=== PATIENT | female | born 1990 ===

== ENCOUNTER 2024-08-04 08:14 | Outpatient (REF) | payer OTHER, SELFPAY ==
--- OUTSIDE RECORDS SUMMARY | 2024-08-04 08:36 | XMS_ITS | Continuity of Care Document ---
Author Organization [facility] Address [address] [place] [address] Phone Care Team Providers Care Perch Mender Name Role Phone Santosh Martinez MD Unavailable Unavailable Advance Directives Directive Yes / No Effective Date File Name No Information Encounters Encounter Description Practice Location Reason(s) For Visit Diagnoses Date Provider Providers Copied on Encounter [facility], [facility] [place], [id number] tel: [phone] [facility] No Information Michelle Frost. [address] [facility], [place], [address]. tel:[phone] Family History Family Member Type Diagnosis Age At Onset No Information Payers Payer name Insurance type Covered alliance party ID Authoriza tion(s) No Information Social History Type Description Quantity Date Captured Comments Sex Female Smoking Status No Information Chief Complaint And Reason For Visit No Information Reason For Referral Reason For Referral No Information History Of Present Illness Encounter Date Complaint History Of Prese nt Illness No Information Functional Status Date Functional Assessmen t No Information Instructions Date Instruction Additional Infor mation No Information Assessments Type Assessment Date No Information Patient Care Teams Name Effective Dates (start - stop) Status Members No Information
--- OUTSIDE RECORDS SUMMARY | 2024-08-04 08:36 | XMS_ITS ---
Author Organization [facility] Address [address] [place] [address] Care Team Providers Care Shop Blacksmith Name Role Phone Humberto Benavides Unavailable [phone] ALLERGIES No Known Allergies RESULTS Component Value Reference Range Notes Urinalysis Reviewed date:03/05/2023 07:54:38 AM Interpretation:Negative Performing Lab: Notes/Report: Negative Color yellow Clarity clear Leuk neg Nitrite neg Urobili 0.2 Protein neg pH 6.0 Blood neg Sp Gr 1.025 Ketone neg Bili neg Glucose neg WBCs RBCs Casts Other REASON FOR VISIT Belly Button Infection Concern discharge for past four weeks, STD Check, Urine Sample Request no symptoms MEDICATIONS Medication SIG (Take, Route, Frequency, Duration) Notes Start Date End Date Status Cyclobenzaprine HCl 10 MG 1 tab(s) orall y 3 times a day for 5 days 07/13/2020 Not-Taking Bactrim DS 800-160 MG 1 tab(s) orally 2 times a day for 7 days 08/27/2019 Not-Taking Kyleena 19.5 MG 1 ea by intrauterine administration once Not-Taking Amoxicillin-Pot Clavulanate 875-125 MG 1 tab(s) orally every 12 hours for 10 day(s) 07/02/2020 Not-Takin g Zoloft 100 MG 2 tabs orally once a day 11/14/2016 Not-Taking Macrobid 100 MG 1 cap(s) orally 2 ti mes a day for 5 day(s) 11/08/2022 Not-Taking Ritalin 10 MG 1 tab(s) orally as needed Active Ritalin LA 30 MG 1 cap(s) orally once a day (in the morning) Not-Taking lamoTRIgine 25 MG 1 tablet Orally Active Wellbutrin XL 300 MG 1 tab(s) orally seema ry 24 hours for 30 day(s) Active metFORMIN HCl 1000 MG 1 tab(s) orally 2 times a day Active SOCIAL HISTORY Tobacco Use: Social History Observation Description Date Details (start date - stop date) Current Smoker NA - NA Sex Assigned At : Social History Observation Description Sex Assigned At Unknown Tobacco Use: Question Answer Notes Are you a: current smoker How often do you smoke? every day How many cigarettes a day do you smoke? 6-10 How soon after you wake do y ou smoke your first cigarette? after 60 min Are you interested in quitting? Not ready to gem t Additional Findings: Tobacco User Modera te cigarette smoker (10-19 cigs/day) VITAL SIGNS Temperature 98.1 degrees Fahrenheit 03/04/20 23 Blood pressure systolic 119 mm Hg 03/04/20 23 Blood pressure diastolic 79 mm Hg 023 Heart Rate 74 /min 03/04/2023 Respiratory Rate 16 /min 03/04/2023 Height 69 in 03/04/2023 Weight 286 lbs 03/04/2023 BMI 42.23 kg/m2 03/04/2023 Oximetry 97 % 03/04/2023 Adelina Brown MA Encounters Encounter Location Date Provider Diagnosis [facility] [address] [facility] [place] [address] 03/04/2023 Humberto Benavides Concern about urinar y tract disease without diagnosis Z71.1 and Worried well Z71.1 ASSESSMENTS Encounter Date Diagnosis Assessment Notes Treatment Notes Treatment Clinical Notes Section Notes 03/04/2023 Concern about urinary tract disease without diagnosis (ICD-10 - Z71.1) UA is without evidence of infection. At time of evaluation, there are no signs or symptoms suggestive of infection, or abnormality. Recommend routine follow up with PCP for ongoing screenings and wellness checks. Return for new/worsening symptoms. At time of evaluation, there are no signs or symptoms suggestive of infection, or abnormality. Recommend routine follow up with PCP for ongoing screenings and wellness checks. Return for new/worsening symptoms. 03/04/2023 Worried well (ICD-10 - Z71.1) See above PLAN OF TREATMENT Treatment Notes Assessment Notes Concern about urinary tract disease without diagnosis UA is without evidence of infection. At time of evaluation, there are no signs or symptoms suggestive of infection, or abnormality. Recommend routine follow up with PCP for ongoing screenings and wellness checks. Return for new/worsening symptoms. At time of evaluation, there are no signs or symptoms suggestive of infection, or abnormality. Recommend routine follow up with PCP for ongoing screenings and wellness checks. Return for new/worsening symptoms. Worried well See above Next Appt Details Follow Up: Per treatment kiran n, Reason: Progress Notes * Corinna BORRERO LDOB:1990 (32 yo F)Acc No.[id number]:03/04/2023 Progress Note Patient:??Corinna Borrero Provider:??ABRAHAM Abel :1990?Age:32 Y?Sex:Fe male Date:03/04/2023 Address:[address] [place] [address] [facility], [id number] Pcp:###Verify PCP Subjective: * Chief Complaints: * ?Belly Button Infection Concern discharge for past four weeks, STD Check, Urine Sample Request no symptoms * HPI: ?Note::? Patient is a 32-year-old female who presents with concern for an infection of her bellybutton. States that for the last 4 weeks she has had on and off drainage from the belly button. It will disappear for a while and then return. States that she has felt a bump on the inside left wall of the belly button at times. Denies fevers, redness or swelling. ? Patient also is concerned about a possible UTI, although she does not have any symptoms. States that she and her mother frequently get UTIs without any prior symptoms and patient is moving to a new state soon, so she wants to test to make sure she is clean. 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 * Surgical History:?? * Hospitalization/Major Diagno stic Procedure:?? * Social History:?General:?Tobacco Use?Are you a:??current smoker ?How often do you smoke???every day ?How many cigarettes a day do you smoke???6-10 ?How soon after you wake do you smoke your first cigarette???after 60 min ?Are you interested in quitting???Not ready to quit ?Additional Findings: Tobacco User??Moderate cigarette smoker (10-19 cigs/day) ?Smokeless Tobacco or other tobacco use: vaping. ?Marital Status: single. ?Smoking: Quit 2013. ?Alcohol (beer, wine,spirits): occasionally. * Medications:??TakingmetFORMI N HCl 1000 MG Tablet 1 tab(s) orally 2 times a day lamoTRIgine 25 MG Tablet 1 tablet Orally Wellbutrin XL 300 MG Tablet Extended Release 24 Hour 1 tab(s) orally every 24 hours Ritalin 10 MG Tablet 1 tab(s) orally as needed Taking metFORMIN HCl 1000 MG Tablet 1 tab(s) orally 2 times a day Taking lamoTRIgine 25 MG Tablet 1 tablet Orally Taking Wellbutrin XL 300 MG Tablet Extended Release 24 Hour 1 tab(s) orally every 24 hours Taking Ritalin 10 MG Tablet 1 tab(s) orally as needed Not-Taking/PRNRitalin LA 30 MG Capsule Extended Release 24 Hour 1 cap(s) orally once a day (in the morning) Macrobid 100 MG Capsule 1 cap(s) orally 2 times a day Zoloft 100 MG Tablet 2 tabs orally once a day Kyleena 19.5 MG Intrauterine Device 1 ea by intrauterine administration once Amoxicillin-Pot Clavulanate 875-125 MG Tablet 1 tab(s) orally every 12 hours Cyclobenzaprine HCl 10 MG Tablet 1 tab(s) orally 3 times a day Bactrim DS 800-160 MG Tablet 1 tab(s) orally 2 times a day Not-Taking/PRN Ritalin LA 30 MG Capsule Extended Release 24 Hour 1 cap(s) orally once a day (in the morning) Not-Taking/PRN Macrobid 100 MG Capsule 1 cap(s) orally 2 times a day Not-Taking/PRN Zoloft 100 MG Tablet 2 tabs orally once a day Not- Taking/PRN Kyleena 19.5 MG Intrauterine Device 1 ea by intrauterine administration once Not-Taking/PRN Amoxicillin-Pot Clavulanate 875-125 MG Tablet 1 tab(s) orally every 12 hours Not-Taking/PRN Cyclobenzaprine HCl 10 MG Tablet 1 tab(s) orally 3 times a day Not-Taking/PRN Bactrim DS 800-160 MG Tablet 1 tab(s) orally 2 times a day * Allergies:??N.K.D.A.no[Aller gies Verified] Objective: * Vitals:??Ht: 69, Wt: 286, BM I:42.23, BP:119/79, HR:74, RR: 16, Temp:98.1, O2 sat %:97 K JED Brown. * Examination: ?Brief Exam: ?GENERAL APPEARANCE:??well nourished, healthy and well appearing.?*CHEST:??normal shape and expansion.?ABDOMEN:??soft, no tenderness, no masses palpated, no CVA tenderness.?SKIN:??No drainage or abscess noted on or around umbilicus with direct visualization or probe with cotton swab.?NEUROLOGIC EXAM:??alert and oriented x 3.? Assessment: * Assessment: 1.??Concern about urinary tr act disease without diagnosis - Z71.1 (Primary)??2.??Worried well - Z71.1?? Plan: * Treatment: ? Value Reference Range ?Color yellow * ?Clarity clear * ?Leuk neg * ?Nitrite neg * ?Urobili 0.2 * ?Protein neg * ?pH 6.0 * ?Blood neg * ?Sp Gr 1.025 * ?Ketone neg * ?Bili neg * ?Glucose neg * Tori Brown MA 03/04/20 05:30:36 PM >Humberto Benavides 03/05/2023 07:54:32 AM > Notes: UA is without evidence of infection. At time of evaluation, there are no signs or symptoms suggestive of infection, or abnormality. Recommend routine follow up with PCP for ongoing screenings and wellness checks. Return for new/worsening symptoms. At time of evaluation, there are no signs orsymptoms suggestive of infection, or abnormality. Recommend routine follow up with PCP for ongoing screenings and wellness checks. Return for new/worsening symptoms.?2.??Worried well?? Notes: See above.? * Procedure Codes:??95557 #URI NE DIP WITHOUT MICRO IN HOUSE * Follow Up:??Per treatment pl an * * Sign off status: Completed true * Provider:??ABRAHAM Abel Date:?? 03/04/2023 History and Physical Notes * HPI (History of Present Illness) Category Sub-Category Detail Notes Category Not es Note: Patient is a 32-year-old female who presents with concern for an infection of her bellybutton. States that for the last 4 weeks she has had on and off drainage from the belly button. It will disappear for a while and then return. States that she has felt a bump on the inside left wall of the belly button at times. Denies fevers, redness or swelling. Patient also is concerned about a possible UTI, although she does not have any symptoms. States that she and her mother frequently get UTIs without any prior symptoms and patient is moving to a new state soon, so she wants to test to make sure she is clean. Examination Category Sub-Category Detail Notes Category Not es Brief Exam ABDOMEN: soft, no tendern ess, no masses palpated, no CVA tenderness GENERAL APPEARANCE: well nourished, heal thy and well appearing SKIN: No drainage or absce ss noted on or around umbilicus with direct visualization or probe with cotton swab NEUROLOGIC EXAM: alert and oriented x 3 *CHEST: normal shape and exp ansion
--- OUTSIDE RECORDS SUMMARY | 2024-08-04 08:36 | XMS_ITS ---
Author Organization [facility] Address [address] [place] [address] Care Team Providers Care Brazer Furnace Name Role Phone Oniel Stein Unavailable [phone] ALLERGIES No Known Allergies RESULTS Component Value Reference Range Notes Urinalysis Reviewed date:03/08/2023 11:55:52 AM Interpretation:Positive Performing Lab: Notes/Report: Positive Color dark yellow Clarity cloudy Leuk 1+ Nitrite neg Urobili neg Protein neg pH 5.0 Blood neg Sp Gr 1.030 Ketone trace Bili neg Glucose neg WBCs RBCs Casts Other -Urine Culture, Routine Reviewed date:03/12/2023 09:48:27 AM Interpretation: Performing Lab: Notes/Report: REASON FOR VISIT possible UTI, /Patient experiencing burning upon urination. Patient experiencing constant dull genital pain. patient started experiencing pain since 03/07/2023. MEDICATIONS Medication SIG (Take, Route, Frequency, Duration) Notes Start Date End Date Status metFORMIN HCl 1000 MG 1 tab(s) orally 2 times a day Active lamoTRIgine 25 MG 1 tablet Orally Active Wellbutrin XL 300 MG 1 tab(s) orally seema ry 24 hours for 30 day(s) Active Ritalin 10 MG 1 tab(s) orally as needed Active Ritalin LA 30 MG 1 cap(s) orally once a day (in the morning) Not-Taking Nitrofurantoin Macrocrystal 100 MG 1 cap(s) orally 2 times a day for 7 day(s) 03/08/2023 Active Kyleena 19.5 MG 1 ea by intrauterine administration once Not-Taking Amoxicillin-Pot Clavulanate 875-125 MG 1 tab(s) orally every 12 hours for 10 day(s) 07/02/2020 Not-Takin g Cyclobenzaprine HCl 10 MG 1 tab(s) orall y 3 times a day for 5 days 07/13/2020 Not-Taking Bactrim DS 800-160 MG 1 tab(s) orally 2 times a day for 7 days 08/27/2019 Not-Taking Macrobid 100 MG 1 cap(s) orally 2 ti mes a day for 5 day(s) 11/08/2022 Not-Taking Zoloft 100 MG 2 tabs orally once a day 11/14/2016 Not-Taking SOCIAL HISTORY Tobacco Use: Social History Observation [...] User Modera te cigarette smoker (10-19 cigs/day) PROBLEMS Problem Type ICD Code Onset Dates Problem Status W/U Status Risk SNOMED Code Notes Problem PCOS (polycystic ovarian syndrome) (E28.2) Active confirmed [facility] [id number] VITAL SIGNS Temperature 98.2 degrees Fahrenheit 03/08/20 23 Blood pressure systolic 97 mm Hg 03/08/20 23 Blood pressure diastolic 65 mm Hg 023 Heart Rate 68 /min 03/08/2023 Respiratory Rate 16 /min 03/08/2023 Height 69 in 03/08/2023 Weight 279.6 lbs 03/08/2023 BMI 41.29 kg/m2 03/08/2023 Oximetry 96 % 03/08/2023 Filemon Epps econd BP taken 03/08/2023 10:10: 101/70 Encounters Encounter Location Date Provider Diagnosis [facility] [place] [address] [place] [address] 03/08/2023 Oniel Stein Urinary tract infec tion without hematuria, site unspecified N39.0 and PCOS (polycystic ovarian syndrome) E28.2 ASSESSMENTS Encounter Date Diagnosis Assessment Notes Treatment Notes Treatment Clinical Notes Section Notes 03/08/2023 Urinary tract infection without hematuria, site unspecified (ICD-10 - N39.0) start antibiotics. Follow-up on culture. Hydrate well. Discussed PCOS management. Follow-up as needed. 03/08/2023 PCOS (polycystic ovarian syndrome) (ICD-10 - E28.2) PLAN OF TREATMENT Medication Medication Name Sig Start Date Stop Date Notes Nitrofurantoin Macrocrystal 100 MG 1 cap(s) orally 2 times a day for 7 day(s) 03/08/2023 Treatment Notes Assessment Notes Urinary tract infection with out hematuria, site unspecified start antibiotics. Follow-up on culture. Hydrate well. Discussed PCOS management. Follow-up as needed. Next Appt Details Follow Up: prn, Reason: Progress Notes * Corinna BORRERO LDOB:1990 (32 yo F)Acc No.[id number]:03/08/2023 Progress Note Patient:??Corinna Borrero Provider:??Oniel Stein MD :1990?Age:32 Y?Sex:Fe male Date:03/08/2023 Address:[facility] [place], [id number] Pcp:###Verify PCP Subjective: * Chief Complaints: * ?possible UTI/Patient e xperiencing burning upon urination. Patient experiencing constant dull genital pain. patient started experiencing pain since 03/07/2023. * HPI: ?Note::? Here for a few days of increasing urinary frequency and pain with urination. No nausea vomiting no abdominal pain no CVA tenderness. * Active Problem List F41.1 Anxiety, generalized [...] 1 tab(s) orally 2 times a day Medication List reviewed and reconciled with the patientNot-Taking/PRN Ritalin LA 30 MG Capsule Extended Release 24 Hour 1 cap(s) orally once a day (in the morning) Not-Taking/PRN Macrobid 100 MG Capsule 1 cap(s) orally 2 times a day Not- Taking/PRN Zoloft 100 MG Tablet 2 tabs orally once a day Not-Taking/PRN Kyleena 19.5 MG Intrauterine Device 1 ea by intrauterine administration once Not-Taking/PRN Amoxicillin-Pot Clavulanate 875-125 MG Tablet 1 tab(s) orally every 12 hours Not-Taking/PRN Cyclobenzaprine HCl 10 MG Tablet 1 tab(s) orally 3 times a day Not-Taking/PRN Bactrim DS 800-160 MG Tablet 1 tab(s) orally 2 times a day Medication List reviewed and reconciled with the patient * Allergies:??N.K.D.A.no[Aller gies Verified] Objective: * Vitals:??Ht: 69, Wt: 279.6, BMI:41.29, BP:97/65, HR:68, RR: 16, Temp:98.2, O2 sat %:96, LMP Date: 02/07/2023 Filemon Day MA Second BP taken 03/08/2023 10:10: 101/70. * Examination: ?Brief Exam: ?GENERAL APPEARANCE:??NAD, well nourished.?HEENT:??atraumatic, normocephalic, PERRL, EOMI.?*CHEST:??normal shape and expansion.?ABDOMEN:??soft, no tenderness, no masses palpated.?SKIN:??warm, dry.?EXTREMITIES:??normal ROM.?NEUROLOGIC EXAM:??alert and oriented x 3.? Assessment: * Assessment: 1.??Urinary tract infection without hematuria, site unspecified - N39.0 (Primary)??2.??PCOS (polycystic ovarian syndrome) - E28.2?? Plan: * Treatment: ?LAB: Urinalysis (Collection Date & Time - 03/08/2023)??Positive* ? Value Reference Range ?Color dark yellow * ?Clarity cloudy * ?Leuk 1+ * ?Nitrite neg * ?Urobili neg * ?Protein neg * ?pH 5.0 * ?Blood neg * ?Sp Gr 1.030 * ?Ketone trace * ?Bili neg * ?Glucose neg * Belinda Aldridge LPN 10:21:49 AM >done.Oniel Stein 03/08/2023 11:55:52 AM > Notes: start antibiotics. Follow-up on culture. Hydrate well. Discussed PCOS management. Follow-upas needed.? * Procedure Codes:??13167 #URI NE DIP WITHOUT MICRO IN [id number] #URINE CULTURE/COLONY COUNT, Modifiers: 90 * Follow Up:??prn * * Sign off status: Completed true * Provider:??Oniel Stein MD Date:??02/09 History and Physical Notes * HPI (History of Present Illness) Category Sub-Category Detail Notes Category Not es Note: Here for a few days of increasing urinary frequency and pain with urination. No nausea vomiting no abdominal pain no CVA tenderness. Examination Category Sub-Category Detail Notes Category Not es Brief Exam HEENT: atraumatic, normocephalic, P ERRL, EOMI ABDOMEN: soft, no tenderness, no masses palpated EXTREMITIES: normal ROM GENERAL APPEARANCE: NAD, well nourished SKIN: warm, dry NEUROLOGIC EXAM: alert and oriented x 3 *CHEST: normal shape and exp ansion
--- OUTSIDE RECORDS SUMMARY | 2024-08-04 08:36 | XMS_ITS | Clinical Summary ---
Author Organization [facility] Address [address] [place] [address] Care Team Providers Care Intel Analyst Name Role Phone Debbie Rosas SONJA Primary Care Provider [phone] Source Comments PLEASE NOTE, if this patient is a minor, it may be UNLAWFUL to discuss sensitive information that is contained in these records (such as FAMILY PLANNING, MENTAL HEALTH or SUBSTANCE ABUSE) with the minor patient's parent or other person without the patient's specific authorization.[facility] Allergies Active Allergy Reactions Criticality Noted Date Comments Lactose Diarrhea 08/27/2019 Medications buPROPion HCL (WELLBUTRIN XL) 300 mg 24 hr tablet Take 1 Tablet by mouth once daily Managed by Dr. Sara Hagen Active VYVANSE 30 mg capsule Take 30 mg by mouth every morning Dr. Sara Hagen 1 Active methylphenidate HCl (RITALIN) 20 mg tablet twice a day Active albuterol sulfate 90 mcg/actuation inhalerIndicatio ns:Wheezing INHALE 2 PUFFS INTO THE LUNGS EVERY 4 HOURS NEEDED FOR WHEEZING 18 g 2 Active metFORMIN (GLUCOPHAGE) 500 mg tabletIndication s:PCOS (polycystic ovarian syndrome),Class 3 severe obesity due to excess calories with body mass index (BMI) of 40.0 to 44.9 in adult, unspecified whether serious comorbidity present ([facility]) Take 1 Tablet by mouth 2 (two) times daily with a meal 200 Tablet 1 2 Active naproxen (NAPROSYN) 500 mg tabletIndication s:Left foot pain take 1 tablet by mouth twice a day with meals for 5 days 10 Tablet 2 Active lamoTRIgine (LAMICTAL) 150 mg tablet Take 1 Tablet by mouth daily 3 Active Active Problems Problem Noted Date Diagnosed Date Cervical high risk HPV (human papillomavirus) te st positive 09/18/2022 Overview (09/18/2022): 09/2022 pap neg, HPV pos, neg for HPV 16/18 -> 1 year follow up [ ] 09/2023 repeat HPV & pap Left foot pain 01/01/2022 Assessment & Plan (01/01/2022 5:16 PM MDT): L foot and ankle pain after wearing cowboy boots 5 days ago. No hx trauma/injury. Does not hurt worse to walk. Epsom salt soak was helpful for pain Exam pertinent for TTP at base of L great toe - Naproxen 500mg BID x 5 days. Take with food - Ice/heat and elevation. May continue Epsom salt soaks - try to be non weight bearing when possible - no hx of trauma, negative [place] rules but will consider XR if no improvement with conservative measures and NSAIDs KRYSTIAN (obstructive sleep apnea) 11/02/2021 Overview (11/02/2021): 10/2021 mild KRYSTIAN Class 3 severe obesity due t o excess calories with body mass index (BMI) of 40.0 to 44.9 in adult ([facility]) 08/24/2021 Assessment & Plan (08/24/2021 3:10 PM MDT): See PCOS A&P Will get CMP, lipids and A1C today. Wheezing 08/18/2021 Assessment & Plan (08/24/2021 3:10 PM MDT): Lungs CTA today. Pt has not had wheezing recently and overall feels better. Had problems with insomnia on steroids. D/C Prednisone. Continue Albuterol prn. Assessment & Plan (08/18/2021 11:19 AM [facility]): Pt has been experiencing wheezing since testing positive for covid on 07/13/21. No hx chronic lung disease. Inspiratory and expiratory wheezing heard throughout lung field. Will treat with Prednisone 20mg BID x 5 days. Risks/benefits reviewed. Potential side effects reviewed. Sent rx Albuterol to be used prn cough/SOB/wheezing. If no improvement or worsening of sx's, RTC or go to ER. Encounter for IUD removal 07/24/2021 Assessment & Plan (07/24/2021 3:28 PM MST): Patient here for IUD removal today, had Kyleena placed 05/2018 due to heavy menstrual bleeding and requests removal today. She and her partner will use condoms for contraception, not opposed to becoming . Patient tolerated procedure well, IUD removed successfully. Routine STI screening completed at patient request today. Tobacco abuse 07/13/2021 Assessment & Plan (07/13/2021 9:33 AM MST): counseled and directed to [place] quit [place] PCOS (polycystic ovarian syndrome) 07/06/2021 Assessment & Plan (10/24/2021 4:36 PM MDT): Pt was started on Metformin 500mg qd but has not taken regularly. Periods overall better. Last A1C 5.3. Lipids slightly elevated Plan - Take Metformin 500mg qd. If tolerated increase to BID dosing - discussed in detail diet and exercise changes such as exercising with a friend and making a plan F/U 3 months Assessment & Plan (08/24/2021 3:07 PM MDT): Pt was previously on Metformin for PCOS and blood glucose control. Would like to restart. Will check standard labs today including lipids and A1C. Will start Metformin 500mg daily. May increase dose at tolerated. Risks/benefits reviewed. GI side effects reviewed. F/U 1 month. Acute pain of left knee 06/22/2021 Assessment & Plan (01/01/2022 5:17 PM MDT): Injured L knee about 6 months ago. Was not too bothersome until recently. Now when she stands, the medial aspect feels out of place. Exam normal except mild pain with palpation on medial aspect - Naproxen 500mg BID x 5 days - heat/ice and elevation - XR to evaluate F/U pending XR Assessment & Plan (06/22/2021 4:30 PM MST): After fall forward onto her knees while rollerblading yesterday. No evidence of internal derangement. Conservative management discussed. If symptoms are not improving after 5 to 7 days she should return for further evaluation and consideration of imaging Abnormal vaginal fluids 12/13/2020 Assessment & Plan (12/13/2020 5:12 PM MDT): Patient reports noticing a grayish, malodorous vaginal discharge for the past week. She also endorses vulvar pruritis. Given her recent unprotected sexual intercourse, it is likely that an STI could be the cause of these symptoms. Bacterial vaginosis is also a potential cause that is important to rule out. Given a lack of noticeable yeast on external vulvar and pelvic exam, vaginal candidiasis is unlikely. Plan: - Swab for Gonorrhea, Chlamydia, and Trichomoniasis with wet mount - Order HIV and Treponemal blood tests Preventative health care 12/13/2020 Assessment & Plan (12/13/2020 5:13 PM MDT): Patient cannot remember if she has ever had a Pap smear. At 30 years old, she is overdue for this screening test. Plan: - Complete a Pap smear Resolved Problems Problem Noted Date Diagnosed Date Resolved Date Sore throat 07/13/2021 08/14/2021 Assessment & Plan (07/13/2021 8:56 AM [facility]): PCR testing sent to confirm. Advised patient isolate until test results are back. Supportive care recommended. Advised to proceed with COVID vaccination once over acute illness if pt is eligible. Cough 03/07/2021 08/24/2021 Assessment & Plan (03/07/2021 2:45 PM MDT): Initial concern for COVID with recent travel and exposure to many different people during her trip. Other viral pharyngitis also considred. Most likely related to recent vacation, limited sleep and mild dehydration. PE not consistent with strep or gonococcal pharyngitis. Lung sounds are clear making bronchitis or pneumonia unlikely, also reassured by normal vital signs. - Rapid COVID negative in clinic - PCR pending - Isolation encouraged - Work note provided Dysuria 12/13/2020 01/27/2021 Assessment & Plan (12/13/2020 5:03 PM MDT): Patient has a history of recurrent UTI's and pyelonephritis, and she has been experiencing dysuria since this morning. She describes her urine as dark, and she denies urinary urgency or frequency. She did not have flank pain on exam. With her strong history of recurrent UTI and dysuria, a UTI is likely. However, given her other genitourinary symptoms, her dysuria could also be caused by a STI. Plan: - Order urinalysis to evaluate for possible UTI. Immunizations Name Administration Dates Next Due DTAP 12/26/1996, 7,01/26/1993,01/12,1991 DTP 02/24/1992,1991,1991 HEP B, PED/ADOL 10/26/2001,03/28/1992,1991 HPV, QUADRIVALENT 09/11/2007,05/08/2007,03/06/20 07 Hep A, Ped/adol, 2 Dose 11/12/2001,12/04/2000 Hep B, Adult/Adol (ENERGIX/RECOMBIVAX) 2 Hib (HbOC) 01/12/1993,02/24/1992,1991 Hib (PRP-T) 01/26/1993,02/27/1992 INFLUENZA, SEASONAL, INJECTABLE 02/26/2012 INFLUENZA, SEASONAL, INJECTA BLE, PRESERVATIVE FREE 05/01/2010,04/27/2009 IPV 12/26/1996,01/26/1993,1991 Immune Globulin Ig 12/26/1996, 3,1991,10/26 MENINGOCOCCAL MCV4, HISTORICAL 03/06/2007 MMR (MMR II/Priorix) 11/12/2001,01/12/1993 MODERNA COVID-19 VACCINE BIV ALENT, BLUE CAP, 6M+ 09/11/2022 OPV, Trivalent 12/08/1996, 3,1991,10/26 PNEUMOCOCCAL CONJUGATE PCV 2 0 (Prevnar) 09/11/2022 TDAP 12/08/2014,01/19/2009 Td(adult),2 Lf tetanus toxoid,preservative free 04/18/2001 Varicella, Live Vaccine 08/26/1997 Family History Medical History Relation Name Comments Arthritis Father Diabetes Maternal Grandfather Alcohol/Drug Abuse Maternal Grandmother Diabetes Maternal Grandmother Arthritis Mother Diabetes Paternal Grandfather Diabetes Paternal Grandmother Relation Name Status Comments Father Maternal Grandfather Maternal Grandmother Mother Paternal Grandfather Paternal Grandmother Social History Tobacco Use Types Packs/Day Years Used Date Smoking Tobacco: Every Day Smokeless Tobacco: Never Comments:Currently using Vap e Alcohol Use Standard Drinks/Week Comments Yes 0 (1 standard drink = 0.6 oz pure alcohol) 2-4 times monthly, 5-6 drinks per session Social Connections Answer Date Recorded Connectedness 0 02/16/2024 Financial Resource Strain Answer Date R ecorded Financial Resource Strain 0 2020 Stress Answer Date Recorded Stress 0 12/13/2020 Physical Activity Answer Date Recorded Physical Activity 0 12/13/2020 Food Insecurity Answer Date Recorded Food 0 07/06/2021 Transportation Needs Answer Date Record ed Transportation 0 07/06/2021 Housing Stability Answer Date Recorded Housing 0 07/06/2021 Safety and Environment Answer Date Tien rded Safety 0 12/13/2020 Utilities Answer Date Recorded Utilities 0 12/13/2020 Employment Answer Date Recorded Employment 0 12/13/2020 Comments No Sex and Gender Information Value Date Recorded Sex Assigned at Female 09/07/2022 10:03 AM PDT Legal Sex Female 11:41 AM PDT Gender Identity Choose not to disclose 2:59 PM PST Sexual Orientation Choose not to disclose 2021 2:59 PM PST Last Filed Vital Signs Vital Sign Reading Time Taken Comments Blood Pressure 123/75 09/11/2022 2:28 PM MDT Pulse 82 09/11/2022 2:28 PM MDT Temperature 36.7 ??C (98.1 ??F) 09/11/2022 2:28 PM MD T Respiratory Rate 16 09/11/2022 2:28 PM MDT Oxygen Saturation 94% 09/11/2022 2:28 PM MDT Inhaled Oxygen Concentration - - Weight 133.4 kg (294 lb) 09/11/2022 2:28 PM MDT Height 177.8 cm (5' 10 ) 09/11/2022 2:28 PM MDT Body Mass Index 42.18 09/11/2022 2:28 PM MDT Plan of Treatment Health Maintenance Due Date Last Done Comments HPV Screening 1991 Tobacco Cessation Counseling (#1) 1991 Tobacco Screening 1991 Relationship Safety Screening/Counseling 08/20/2006 Annual Preventive Care Visit 08/20/2009 Syphilis Screening 07/24/2022 07/24/2021, 12/13/2020 Cervical Cancer Screening 09/12/2023 Pap Smear 09/12/2023 09/11/2022, 12/13/2020 [id number] ( season) 2024 09/11/2022, 02/11/2021, 01/11/2021 Imm-Influenza (#1) 2024 02/26/2012, 1 07/01/2009, 04/27/2009 Alcohol and Drug Screen 06/10/2024 Depression Annual Screen 06/10/2024 09/11/2022 Imm-DTaP/Tdap/Td (8 - Td or Tdap) 12/08/2024 12/08/2014, 01/19/2009, 04/18/2001, Additional history exists Hypertension Screening (#1) 09/10/2025 Pap + HPV 09/12/2027 09/11/2022 Imm-Hepatitis A Completed 11/12/2001, 12/04/2000 Imm-Hepatitis B Completed 08/23/2011, 10/08, 03/28/1992, Additional history exists HIV Screening Completed 07/24/2021, 12/13/2020 Hepatitis C Screening Completed 07/24/2021 Imm-Pneumococcal Completed 09/11/2022 Cervical Ablation/Cold-Knife Conization Discontinued Cervical Cryotherapy Discontinued Colposcopy Discontinued Endometrial Biopsy Discontinued Excision/Leep Discontinued HPV Genotyping Discontinued Vaginal Pap Discontinued Vulvoscopy Discontinued Procedures Procedure Name Priority Date/Time Associated Diagnosis Comments PAP, AGE-BASED WITH GC/CT/TRICH RNA Routine 09/11/2022 3:06 PM MDT Cervical cancer screening HIV 1/2 EIA ANTIBODY SCREEN W/REFLEXES Routine 07/24/2021 3:31 PM MST Routine screening for STI (sexually transmitted infection) TREPONEMA PALLIDUM AB EIA W/RFLX Routine 07/24/2021 3:31 PM MST Routine screening for STI (sexually transmitted infection) HEPATITIS C ANTIBODY WITH REFLEX TO HCV, RNA, QUANTITATIVE, REAL-TIME PCR (REFL) Routine 07/24/2021 3:31 PM MST Need for hepatitis C screening test from Last 3 Months or Most Recently Relevant to Health Maintenance Results * PAP, AGE-BASED WITH GC/CT/TRICH RNA (09/11/2022 3:06 PM MDT) PAP, AGE-BASED + CT/GC/TRICH Negative [facility] Swab Cervix uteri structure / Unknown 09/11/2022 3:06 PM MDT 09/13/2022 8:14 AM MDT Narrative [facility] - 09/11/2022 3:06 PM MDT ? Cytology Report Result: Cervical Cytology Negative for Intraepithelial Lesion or Malignancy Specimen Adequacy: SATISFACTORY For Evaluation, Endocervical/Transformation Zone Component is Absent source: Cervical Guided Screen Comment: This specimen has been manually reviewed after automated primary screening by Thinprep Imaging System Attachment: The [place] Guidelines for Reporting Cervical Cytology do not require presence of transformation zone for a cervical Pap test to be deemed adequate. This pap test does not require repeat testing unless otherwise clinically indicated. Comment: The Pap Test is a screening test for cervical cancer and its precursors with inherent false negative results. Clinicopathologic correlation is recommended. Result Code: NILM Jyoti Borjas LAB - NO BLOOD DRAW Final Resul t [facility] [address] [place] [address], [place] [phone] * HEPATITIS C ANTIBODY WITH REFLEX TO HCV, RNA, QUANTITATIVE, REAL-TIME PCR (REFL) (07/24/2021 3:31 PM [facility]) Pathologist [facility] ANTI-HCV W/REFLEX NEGATIVE negative [facility] Comment: ANTI-HCV INTERPRETIVE NOTES: NEGATIVE: NO SEROLOGIC EVIDENCE OF CURRENT OR PAST HEPATITIS C VIRUS INFECTION. POSITIVE: IF ANTI-HCV POSITIVE IS A TRUE POSITIVE, THIS IS CONSISTENT WITH CURRENT OR PAST HEPATITIS C VIRUS INFECTION. ??AT LEAST 70% OF THESE PATIENTS ARE OR WILL BECOME CHRONIC CARRIERS OF HEPATITIS C, WITH RISK OF CHRONIC ACTIVE HEPATITIS, CIRRHOSIS, AND/OR HEPATOMA. ANTI-HCV IS NOT PROTECTIVE. ?? PATIENTS POSITIVE FOR ANTI-HCV SHOULD BE CONSIDERED INFECTIVE FOR HEPATITIS C. ??TEST FOR HCV RNA TO IDENTIFY CURRENT INFECTION. Biotin in specimens taken from patients on high-dose biotin therapy or supplements may intefere with this test and cause inaccurate test results. It is recommended that for patients receiving therapy with high biotin doses (> 5 mg/day), no laboratory test specimen should be collected until at least 8 hours after the last biotin administration. Blood Blood / Unknown 07/24/2021 3 :31 PM MST 07/24/2021 3:24 PM [facility] Soumya Salmeron DO LAB - BLOOD DRAW Final Result Performing Organization Address [facility] de Phone Number [facility] [address] [place], [place] [id number] * TREPONEMA PALLIDUM AB EIA W/RFLX (07/24/2021 3:31 PM MST) Pathologist [facility] TREPONEMAL AB NON-REACT MICHELLE non-react michelle [facility] Comment: When the TREPONEMAL AB TOT test is reactive, it will reflex to RPR. If the RPR is non-reactive, it will then reflex to the TREPONEMAL AB IgG test for confirmation. When interpreting these results, consider the patient's history of prior infections and treatment and the patient's risk of re-infection. If diagnosis is still unclear, recommend re-testing in 2-4 weeks. Blood Blood / Unknown 07/24/2021 3 :31 PM MST 07/24/2021 3:24 PM [facility] Soumya Salmeron DO LAB - BLOOD DRAW Final Result [facility] [address] [place], [place] [address] * HIV 1/2 EIA ANTIBODY SCREEN W/REFLEXES (07/24/2021 3:31 PM [facility]) HIV 1+2 ANTIBODIES NON-REAC TIVE non-reac tive [facility] Comment: The Liz [id number] HIVDUO electrochemiluminescent immunoassay is used. Results obtained with different assay methods or kits cannot be used interchangeably. Blood Blood / Unknown 07/24/2021 3 :31 PM MST 07/24/2021 3:24 PM [facility] LAB - BLOOD DRAW Final Result [facility] [address] [place] [address] from Last 3 Months or Most Recently Relevant to Health Maintenance [place] [id number] Care Teams Intel Analyst Relationship Specialty Start Date End Date Debbie Rosas NP [id number] [place] [id number] PCP - General Family Medicine, CLASSIFIED COPY CONTROL CLERK 01/17/23
--- OUTSIDE RECORDS SUMMARY | 2024-08-04 08:37 | XMS_ITS | Patient Health Record ---
Author Organization [facility] Address [address] [place] [address] Support Name Relationship Address Phone Myriam Alatorre Emergency Contact Unknown [phone] Corinna Borrero Guarantor Unknown [phone] ALLERGIES No Known Allergies REASON FOR REFERRAL No Information MEDICATIONS Medication SIG (Take, Route, Frequency, Duration) Notes Start Date End Date Status Nitrofurantoin Macrocrystal 100 MG 1 cap(s) orally [...] a day for 7 days 08/27/2019 Not-Taking metFORMIN HCl 1000 MG 1 tab(s) orally 2 times a day Active lamoTRIgine 25 MG 1 tablet Orally Active Wellbutrin XL 300 MG 1 tab(s) orally seema ry 24 hours for 30 day(s) Active Ritalin 10 MG 1 tab(s) orally as needed Active Ritalin LA 30 MG 1 cap(s) orally once a day (in the morning) Not-Taking Macrobid 100 MG 1 cap(s) orally 2 ti mes a day for 5 day(s) 11/08/2022 Not-Taking Zoloft 100 MG 2 tabs orally once a day 11/14/2016 Not-Taking IMMUNIZATIONS Vaccine Route Administration Date Status Comme nts #FluLaval Private 19 Yrs and over IM Intramuscular 02/26/2012 Administered Hep B Private 20 Yrs and over IM Intramuscular 08/23/2011 Administered SOCIAL HISTORY Tobacco Use: Social History Observation [...] W/U Status Risk SNOMED Code Notes Problem Severe Obesity (E66.01) Active confirmed HCC Severe obesity (404920017913 04) 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 54357412 Problem PCOS (polycystic ovarian syndrome) (E28.2) Active confirmed HCC 957944848 Problem Anxiety, generalized (F41.1) Active confirmed [id number] Problem Recurrent depression (F33.9) Active confirmed HCC Recurrent depression (027222540) PLAN OF TREATMENT No Information Insurance Providers Payer Name Payer Address Payer Phone Subscriber Number Group Number Insured Name Patient Relationship to Insured Coverage Start Date Coverage End Date [facility] [address] [address] [place] [phone] [id number] Corinna Borrero Self - patient is the insured MEDICAL (GENERAL) HISTORY Medical History History ICD Code Reported Hx ADHD/depression Surgical History Surgery Date(Month/Year) Right shoulder surgery 07/20/2014
== END 2024-08-04 08:15 | disposition home or self-care (01) ==
LOC: HO.UMASIMG 08:14
PROVIDERS: Visit Provider Emergency Medicine
DX: Z13.89 Encounter for screening for other disorder (principal)